=== PATIENT | male | born 1950 | race Caucasian/White ===

== ENCOUNTER 2017-02-26 12:02 | Inpatient (IN) | payer BC ==
[~2017-02-26] VITALS: Ht 177.8 cm; Wt 208.6 kg
[2017-02-26 12:54] LABS: EOSINOPHIL (%) 0 % (0-5); IMMATURE GRANULOCYTE (%) 0.2 % (0.0-0.7); INSTRUMENT ABS NEUTROPHIL CT 3.6 K/uL; LYMPHOCYTE COUNT 0.6 K/uL (1.0-2.8); MCH 30.3 PG (29.0-34.0); MCHC 31.7 G/DL (30.0-36.0); MCV 95.6 FL (86-99); MEAN PLAT.VOLUME 11.4 uM^3 (9.0-12.4); MONOCYTE (%) 10.6 % (3-12); MONOCYTE COUNT 0.5 K/uL (0-0.8); NEUTROPHIL (%) 75.7 % (45-76); NEUTROPHIL COUNT 3.6 K/uL (1.8-6.4); PLATELET COUNT 173 K/uL (156-360); RBC DIS.WIDTH-CV 14.7 % (11.8-14.6); RBC DIS.WIDTH-SD 52.1 % (39-53); RED BLOOD COUNT 4.29 M/uL (4.00-5.50); WHITE BLOOD COUNT 4.7 K/uL (4.1-10.2)
[2017-02-26 13:04] LABS: PROTHROMBIN TIME 10.6 (9.2-11.2); PTT 29.4 (25-32)
[2017-02-26 13:05] LABS: CHLORIDE 106 mEq/L (99-109); POTASSIUM 4.5 mEq/L (3.7-5.4); SODIUM 141 mEq/L (136-147)
[2017-02-26 13:06] LABS: MAGNESIUM 1.8 mg/dL (1.3-2.7)
[2017-02-26 13:07] LABS: GLUCOSE 114 mg/dL (70-99)
[2017-02-26 13:08] LABS: ANION GAP 10 MEQ/L (2-14)
[2017-02-26 13:11] LABS: GFR ESTIMATE (CALCULATED) > 59 mL/min/
[2017-02-26 13:12] LABS: UREA NITROGEN (BUN) 14 mg/dL (9-23)
[2017-02-26 13:16] LABS: TROP-I INTERPRETATION NEGATIVE; TROPONIN-I 0.03 ng/mL (0.0-0.30)
[2017-02-26 14:00] LABS: INFLUENZA A VIRAL ANTIGEN NEGATIVE; INFLUENZA B VIRAL ANTIGEN NEGATIVE
[2017-02-26] MEDS ORDERED: LISINOPRIL10 MG PO (15:20)
[2017-02-26] MEDS ORDERED: LEVOTHYROXINE75 MCG PO (15:21)
[2017-02-26] MEDS ORDERED: PIOGLITAZONE HC45 MG PO (15:21)
[2017-02-26] MEDS ORDERED: ROSUVASTATIN CA20 MG PO (15:21)
[2017-02-26] MEDS ORDERED: METFORMIN HCL500 MG PO (15:22)
[2017-02-26] MEDS ORDERED: PAIN RELIEF EX500 MG PO (15:24)
[2017-02-26 17:20] VITALS: BP 192/93
[2017-02-26 18:57] VITALS: BP 192/93
[2017-02-26 20:40] LABS: TROP-I INTERPRETATION NEGATIVE; TROPONIN-I 0.01 ng/mL (0.0-0.30)
[2017-02-26 23:57] VITALS: BP 135/71
[2017-02-27 00:59] LABS: TROP-I INTERPRETATION NEGATIVE; TROPONIN-I 0.01 ng/mL (0.0-0.30)
[2017-02-27 04:01] VITALS: BP 135/67
[2017-02-27 07:07] LABS: INTER. NORMALIZED RATIO 1.1; PROTHROMBIN TIME 10.7 (9.2-11.2); PTT 27.5 (25-32)
[2017-02-27 07:43] VITALS: BP 127/75
[2017-02-27 11:23] VITALS: BP 123/68
[2017-02-27 15:39] VITALS: BP 136/88
[2017-02-27 19:56] VITALS: BP 140/64
[2017-02-27 21:29] LABS: POINT-OF-CARE METER ID UU14174225
[2017-02-28 04:00] VITALS: BP 147/84
[2017-02-28 08:04] LABS: POINT-OF-CARE METER ID UU14188625
[2017-02-28 08:05] VITALS: BP 140/84
[2017-02-28 11:11] VITALS: BP 135/88
[2017-02-28 12:04] LABS: POINT-OF-CARE METER ID UU14188625
[2017-02-28 16:08] VITALS: BP 131/74
[2017-02-28 19:59] VITALS: BP 125/73
[2017-03-01 00:29] VITALS: BP 139/83
[2017-03-01 08:15] VITALS: BP 140/77
[2017-03-01 11:27] VITALS: BP 140/78
[2017-03-01 16:31] VITALS: BP 131/86
[2017-03-01 20:26] VITALS: BP 143/65
[2017-03-01 21:21] LABS: POINT-OF-CARE METER ID UU14174225
[2017-03-02] VITALS: BP 137/70
[2017-03-02 04:01] VITALS: BP 134/71
[2017-03-02 07:55] VITALS: BP 127/72
[2017-03-02 11:16] VITALS: BP 163/82
[2017-03-02] MEDS ORDERED: SPIRIVA RESPIMAT4 GM IH (12:02)
[2017-03-02] MEDS ORDERED: ELIQUIS5 MG PO (12:02)
[2017-03-02] MEDS ORDERED: LEVOFLOXACIN750 MG PO (12:02)
[2017-03-02] MEDS ORDERED: CARDIZEM CD,CA240 MG PO (12:03)
[2017-03-02] MEDS ORDERED: ADVAIR HFA120 INHALA IH (12:07)
[2017-03-02] MEDS ORDERED: PREDNISONE10 MG PO (12:10)
== END 2017-03-02 13:44 | disposition home health service (06) | DRG 191 ==
LOC: EME 12:02 → 5SOUTH 14:46 → EDOF 14:46 → 5SOUTH 17:20
PROVIDERS: Emergency Medicine; Hospitalist; Internal Medicine
DX: J44.0 Chronic obstructive pulmonary disease with (acute) lower respiratory infection (principal); J20.9 Acute bronchitis, unspecified; J44.1 Chronic obstructive pulmonary disease with (acute) exacerbation; I11.0 Hypertensive heart disease with heart failure; I50.9 Heart failure, unspecified; I48.91 Unspecified atrial fibrillation; G47.33 Obstructive sleep apnea (adult) (pediatric); I27.2 Other secondary pulmonary hypertension; E66.01 Morbid (severe) obesity due to excess calories; Z68.44 Body mass index [BMI] 60.0-69.9, adult; E11.9 Type 2 diabetes mellitus without complications; I87.2 Venous insufficiency (chronic) (peripheral); L30.9 Dermatitis, unspecified; E78.5 Hyperlipidemia, unspecified; E03.9 Hypothyroidism, unspecified; Z87.891 Personal history of nicotine dependence
CPT/HCPCS: 71010; 80048; 82948; 83735; 83880; 84443; 84484; 85025; 85610; 85730; 87502; 93005; 93306; 94640; 94640 76; 94760; 94799; 99202; 99281; 99285; J1100; J1815; J1940; J2920; J2930; J7030; J7512; J7644

== ENCOUNTER 2018-01-31 18:54 | Inpatient (IN) | payer OTHER, BC ==
[~2018-01-31] VITALS: Ht 172.7 cm; Wt 261.0 kg
[~2018-01-31 18:54] MED LIST: ADVAIR HFA120 INHALA IH; CARDIZEM CD,CA240 MG PO; ELIQUIS5 MG PO; LEVOFLOXACIN750 MG PO; LEVOTHYROXINE75 MCG PO; LISINOPRIL10 MG PO; METFORMIN HCL500 MG PO; PAIN RELIEF EX500 MG PO; PIOGLITAZONE HC45 MG PO; PREDNISONE10 MG PO; ROSUVASTATIN CA20 MG PO; SPIRIVA RESPIMAT4 GM IH
[2018-01-31 20:09] LABS: BASOPHIL (%) 0.2 % (0-1); EOSINOPHIL (%) 0 % (0-5); HEMATOCRIT 36.3 % (38.0-50.0); HEMOGLOBIN 11.4 G/DL (12.5-16.6); IMMATURE GRANULOCYTE (%) 1.2 % (0.0-0.7); LYMPHOCYTE (%) 4.2 % (15-42); LYMPHOCYTE COUNT 0.5 K/uL (1.0-2.8); MCH 29.5 PG (29.0-34.0); MCHC 31.4 G/DL (30.0-36.0); MCV 93.8 FL (86-99); MONOCYTE (%) 6.9 % (3-12); MONOCYTE COUNT 0.9 K/uL (0-0.8); NEUTROPHIL (%) 87.5 % (45-76); NEUTROPHIL COUNT 10.8 K/uL (1.8-6.4); NRBC (%) 0.4 /100 WBC (0-0); PLATELET COUNT 232 K/uL (156-360); RBC DIS.WIDTH-CV 17.2 % (11.8-14.6); RBC DIS.WIDTH-SD 59.1 % (39-53); RED BLOOD COUNT 3.87 M/uL (4.00-5.50); WHITE BLOOD COUNT 12.3 K/uL (4.1-10.2)
[2018-01-31 20:16] LABS: CHLORIDE 100 mEq/L (99-109); INTER. NORMALIZED RATIO 2.4; SODIUM 132 mEq/L (136-147)
[2018-01-31 20:18] LABS: GLUCOSE 114 mg/dL (70-99); PTT 37.7 SEC (25-37)
[2018-01-31 20:22] LABS: CREATININE 3.3 mg/dL (0.6-1.3); GFR ESTIMATE (CALCULATED) 20 mL/min/ (58.99-99999); UREA NITROGEN (BUN) 65 mg/dL (9-23)
[2018-01-31 20:30] LABS: TROP-I INTERPRETATION POSITIVE
[2018-01-31 20:34] LABS: TROPONIN-I 1.63 ng/mL (0.0-0.30)
[2018-01-31 20:44] LABS: CREATINE KINASE 4477 IU/L (1-294); POTASSIUM 6.9 mEq/L (3.7-5.4)
[2018-01-31 22:40] LABS: APPEARANCE CLOUDY ((CLEAR)); BILIRUBIN NEGATIVE; BLOOD LARGE; COLOR YELLOW ((YELLOW)); GLUCOSE (STRIP) NEGATIVE; KETONES NEGATIVE; LEUKOCYTES NEGATIVE; NITRITE NEGATIVE; PROTEIN (STRIP) 100; SPECIFIC GRAVITY 1.014 (1.000-1.030)
[2018-01-31 22:53] LABS: WHITE BLOOD CELLS 0-5 /HPF (0-5)
[2018-01-31 22:54] LABS: AMORPHOUS URATES CRYSTALS 4+; BACTERIA 1+ /HPF; EPITHELIAL CELLS 2+ /HPF; MUCUS NONE SEEN /LPF; UCUL ADDED? NO
[2018-01-31] MEDS ORDERED: LEVOTHYROXINE125 MCG PO (23:53)
[2018-01-31] MEDS ORDERED: DILTIAZEM 24HR240 MG PO (23:53)
[2018-01-31] MEDS ORDERED: TRAMADOL HCL50 MG PO (23:55)
[2018-02-01] MEDS ORDERED: FLEXERIL10 MG PO (00:21)
[2018-02-01] MEDS ORDERED: LASIX20 MG PO (00:23)
[2018-02-01 03:38] LABS: TROP-I INTERPRETATION POSITIVE
[2018-02-01 03:39] LABS: TROPONIN-I 1.25 ng/mL (0.0-0.30)
[2018-02-01 05:00] VITALS: BP 118/76
[2018-02-01 08:08] VITALS: BP 114/53
[2018-02-01 09:53] LABS: HEMATOCRIT 33.1 % (38.0-50.0); HEMOGLOBIN 10.4 G/DL (12.5-16.6); MCH 29.8 PG (29.0-34.0); MCHC 31.4 G/DL (30.0-36.0); MCV 94.8 FL (86-99); NRBC (%) 0.3 /100 WBC (0-0); PLATELET COUNT 183 K/uL (156-360); RBC DIS.WIDTH-CV 17.3 % (11.8-14.6); RBC DIS.WIDTH-SD 59.6 % (39-53); RED BLOOD COUNT 3.49 M/uL (4.00-5.50); WHITE BLOOD COUNT 11.7 K/uL (4.1-10.2)
[2018-02-01 10:14] LABS: TROP-I INTERPRETATION POSITIVE; TROPONIN-I 1.02 ng/mL (0.0-0.30)
[2018-02-01 12:00] VITALS: BP 122/57
[2018-02-01 12:04] LABS: CHLORIDE 103 MEQ/L (99-109); GFR ESTIMATE (CALCULATED) 22 mL/min/ (58.99-99999); GLUCOSE 100 mg/dL (70-99); SODIUM 136 MEQ/L (136-147); UREA NITROGEN (BUN) 65 mg/dL (9-23)
[2018-02-01 12:05] LABS: CREATINE KINASE 2522 IU/L (1-294); POTASSIUM 6.5 MEQ/L (3.7-5.4)
[2018-02-01 15:00] LABS: CHLORIDE 103 MEQ/L (99-109); GFR ESTIMATE (CALCULATED) 22 mL/min/ (58.99-99999); GLUCOSE 109 mg/dL (70-99); SODIUM 138 MEQ/L (136-147); UREA NITROGEN (BUN) 63 mg/dL (9-23)
[2018-02-01 15:09] LABS: POTASSIUM 6.2 MEQ/L (3.7-5.4)
[2018-02-01 19:58] VITALS: BP 100/50
[2018-02-01 21:28] LABS: CHLORIDE 104 MEQ/L (99-109); SODIUM 135 MEQ/L (136-147)
[2018-02-01 22:01] LABS: GFR ESTIMATE (CALCULATED) 22 mL/min/ (58.99-99999); GLUCOSE 111 mg/dL (70-99); POTASSIUM 6.3 MEQ/L (3.7-5.4); UREA NITROGEN (BUN) 60 mg/dL (9-23)
[2018-02-01 23:08] VITALS: BP 105/50
[2018-02-02 02:43] VITALS: BP 105/45
[2018-02-02 05:58] LABS: BASOPHIL (%) 0.3 % (0-1); EOSINOPHIL (%) 1.5 % (0-5); EOSINOPHIL COUNT 0.1 K/uL (0-0.3); HEMATOCRIT 30.7 % (38.0-50.0); HEMOGLOBIN 9.2 G/DL (12.5-16.6); IMMATURE GRANULOCYTE (%) 0.7 % (0.0-0.7); LYMPHOCYTE (%) 8.6 % (15-42); LYMPHOCYTE COUNT 0.8 K/uL (1.0-2.8); MCH 28.5 PG (29.0-34.0); MONOCYTE (%) 11.5 % (3-12); NEUTROPHIL (%) 77.4 % (45-76); NEUTROPHIL COUNT 6.9 K/uL (1.8-6.4); NRBC (%) 0.3 /100 WBC (0-0); PLATELET COUNT 196 K/uL (156-360); RBC DIS.WIDTH-CV 17.1 % (11.8-14.6); RBC DIS.WIDTH-SD 59.6 % (39-53); RED BLOOD COUNT 3.23 M/uL (4.00-5.50); WHITE BLOOD COUNT 8.9 K/uL (4.1-10.2)
[2018-02-02 07:02] LABS: CHLORIDE 104 MEQ/L (99-109); CREATININE 3.3 MG/DL (0.6-1.3); GFR ESTIMATE (CALCULATED) 20 mL/min/ (58.99-99999); GLUCOSE 101 mg/dL (70-99); SODIUM 135 MEQ/L (136-147); UREA NITROGEN (BUN) 63 mg/dL (9-23)
[2018-02-02 07:05] LABS: CREATINE KINASE 1128 IU/L (1-294); POTASSIUM 6.1 MEQ/L (3.7-5.4)
[2018-02-02 08:48] VITALS: BP 127/86
[2018-02-02 09:50] LABS: THYROTROPIN (TSH) 3.8 MIU/L (0.4-5.5)
[2018-02-02 12:42] LABS: CHLORIDE 106 MEQ/L (99-109); CREATININE 2.9 MG/DL (0.6-1.3); GFR ESTIMATE (CALCULATED) 23 mL/min/ (58.99-99999); GLUCOSE 134 mg/dL (70-99); POTASSIUM 5.7 MEQ/L (3.7-5.4); SODIUM 138 MEQ/L (136-147); UREA NITROGEN (BUN) 59 mg/dL (9-23)
[2018-02-02 13:29] VITALS: BP 126/74
[2018-02-02 14:21] LABS: C DIFF TOXIN NEGATIVE (NEGATIVE)
[2018-02-02 16:12] VITALS: BP 132/74
[2018-02-02 20:10] VITALS: BP 110/50
[2018-02-02 22:51] VITALS: BP 95/44
[2018-02-03 02:24] VITALS: BP 108/52
[2018-02-03 05:39] LABS: HEMATOCRIT 31.5 % (38.0-50.0); HEMOGLOBIN 9.7 G/DL (12.5-16.6); MCH 29.2 PG (29.0-34.0); MCHC 30.8 G/DL (30.0-36.0); MCV 94.9 FL (86-99); PLATELET COUNT 202 K/uL (156-360); RBC DIS.WIDTH-CV 17.4 % (11.8-14.6); RBC DIS.WIDTH-SD 60.3 % (39-53); RED BLOOD COUNT 3.32 M/uL (4.00-5.50); WHITE BLOOD COUNT 12.3 K/uL (4.1-10.2)
[2018-02-03 06:01] LABS: CHLORIDE 104 MEQ/L (99-109); CREATINE KINASE 510 IU/L (1-294); CREATININE 2.9 MG/DL (0.6-1.3); GFR ESTIMATE (CALCULATED) 23 mL/min/ (58.99-99999); GLUCOSE 153 mg/dL (70-99); MAGNESIUM 1.4 mg/dl (1.3-2.7); POTASSIUM 5.9 MEQ/L (3.7-5.4); SODIUM 139 MEQ/L (136-147); UREA NITROGEN (BUN) 56 mg/dL (9-23)
[2018-02-03 09:22] VITALS: BP 146/89
[2018-02-03 11:34] VITALS: BP 144/71
[2018-02-03 19:47] VITALS: BP 109/58
[2018-02-03 23:28] VITALS: BP 119/55
[2018-02-04 06:08] LABS: HEMATOCRIT 32.5 % (38.0-50.0); HEMOGLOBIN 9.9 G/DL (12.5-16.6); MCH 28.8 PG (29.0-34.0); MCHC 30.5 G/DL (30.0-36.0); MCV 94.5 FL (86-99); NRBC (%) 0.1 /100 WBC (0-0); PLATELET COUNT 214 K/uL (156-360); RBC DIS.WIDTH-CV 17.2 % (11.8-14.6); RBC DIS.WIDTH-SD 59.3 % (39-53); RED BLOOD COUNT 3.44 M/uL (4.00-5.50); WHITE BLOOD COUNT 17.2 K/uL (4.1-10.2)
[2018-02-04 06:28] LABS: CHLORIDE 101 MEQ/L (99-109); CREATININE 2.6 MG/DL (0.6-1.3); GFR ESTIMATE (CALCULATED) 26 mL/min/ (58.99-99999); GLUCOSE 183 mg/dL (70-99); MAGNESIUM 1.4 mg/dl (1.3-2.7); POTASSIUM 5.5 MEQ/L (3.7-5.4); SODIUM 136 MEQ/L (136-147); UREA NITROGEN (BUN) 57 mg/dL (9-23)
[2018-02-04 07:12] VITALS: BP 111/56
[2018-02-04 16:00] VITALS: BP 114/61
[2018-02-04 18:55] VITALS: BP 114/61
[2018-02-05 00:09] VITALS: BP 103/52
[2018-02-05 06:06] LABS: BASOPHIL (%) 0.1 % (0-1); EOSINOPHIL (%) 0 % (0-5); HEMATOCRIT 31.1 % (38.0-50.0); HEMOGLOBIN 9.6 G/DL (12.5-16.6); IMMATURE GRANULOCYTE (%) 1.3 % (0.0-0.7); LYMPHOCYTE (%) 2.2 % (15-42); LYMPHOCYTE COUNT 0.3 K/uL (1.0-2.8); MCH 28.4 PG (29.0-34.0); MCHC 30.9 G/DL (30.0-36.0); MONOCYTE (%) 5.1 % (3-12); MONOCYTE COUNT 0.8 K/uL (0-0.8); NEUTROPHIL (%) 91.3 % (45-76); NEUTROPHIL COUNT 13.5 K/uL (1.8-6.4); NRBC (%) 0.1 /100 WBC (0-0); PLATELET COUNT 225 K/uL (156-360); RBC DIS.WIDTH-CV 17.3 % (11.8-14.6); RBC DIS.WIDTH-SD 58.6 % (39-53); RED BLOOD COUNT 3.38 M/uL (4.00-5.50); WHITE BLOOD COUNT 14.8 K/uL (4.1-10.2)
[2018-02-05 06:26] LABS: CHLORIDE 103 MEQ/L (99-109); GFR ESTIMATE (CALCULATED) 34 mL/min/ (58.99-99999); GLUCOSE 208 mg/dL (70-99); POTASSIUM 5.8 MEQ/L (3.7-5.4); SODIUM 137 MEQ/L (136-147); UREA NITROGEN (BUN) 53 mg/dL (9-23)
[2018-02-05 06:30] LABS: CREATININE 2.1 MG/DL (0.6-1.3)
[2018-02-05 07:46] VITALS: BP 97/53
[2018-02-05 10:34] LABS: HEMOGLOBIN A1c (GLYCOHEMOGLOB) 6.3 % (Below 5.7)
[2018-02-05 11:37] VITALS: BP 119/58
[2018-02-05 15:48] VITALS: BP 112/57
[2018-02-05 17:15] LABS: CHLORIDE 103 mEq/L (99-109); SODIUM 136 mEq/L (136-147)
[2018-02-05 17:17] LABS: GLUCOSE 189 mg/dL (70-99)
[2018-02-05 17:21] LABS: GFR ESTIMATE (CALCULATED) 35 mL/min/ (58.99-99999)
[2018-02-05 17:22] LABS: UREA NITROGEN (BUN) 58 mg/dL (9-23)
[2018-02-05 19:29] VITALS: BP 115/55
[2018-02-05 23:46] VITALS: BP 121/55
[2018-02-06 04:00] VITALS: BP 112/59
[2018-02-06 06:07] LABS: HEMATOCRIT 32.5 % (38.0-50.0); MCH 29.1 PG (29.0-34.0); MCHC 30.8 G/DL (30.0-36.0); MCV 94.5 FL (86-99); NRBC (%) 0.2 /100 WBC (0-0); PLATELET COUNT 251 K/uL (156-360); RBC DIS.WIDTH-CV 17.5 % (11.8-14.6); RBC DIS.WIDTH-SD 60.4 % (39-53); RED BLOOD COUNT 3.44 M/uL (4.00-5.50); WHITE BLOOD COUNT 13.2 K/uL (4.1-10.2)
[2018-02-06 06:42] LABS: CHLORIDE 102 MEQ/L (99-109); GFR ESTIMATE (CALCULATED) 35 mL/min/ (58.99-99999); GLUCOSE 176 mg/dL (70-99); SODIUM 138 MEQ/L (136-147); UREA NITROGEN (BUN) 52 mg/dL (9-23)
[2018-02-06 06:49] LABS: POTASSIUM 6.2 MEQ/L (3.7-5.4)
[2018-02-06 07:03] VITALS: BP 101/59
[2018-02-06 11:10] VITALS: BP 110/56
[2018-02-06 15:05] VITALS: BP 121/63
[2018-02-06 18:34] LABS: CHLORIDE 102 MEQ/L (99-109); CREATININE 1.8 MG/DL (0.6-1.3); GFR ESTIMATE (CALCULATED) 40 mL/min/ (58.99-99999); GLUCOSE 193 mg/dL (70-99); POTASSIUM 5.6 MEQ/L (3.7-5.4); SODIUM 135 MEQ/L (136-147); UREA NITROGEN (BUN) 52 mg/dL (9-23)
[2018-02-06 20:14] VITALS: BP 111/56
[2018-02-07] VITALS (7 sets, daily range): BP systolic 109–130; BP diastolic 57–66
[2018-02-07 07:01] LABS: CHLORIDE 100 MEQ/L (99-109); CREATININE 1.7 MG/DL (0.6-1.3); GFR ESTIMATE (CALCULATED) 43 mL/min/ (58.99-99999); GLUCOSE 155 mg/dL (70-99); POTASSIUM 5.2 MEQ/L (3.7-5.4); SODIUM 137 MEQ/L (136-147); UREA NITROGEN (BUN) 49 mg/dL (9-23)
[2018-02-08 03:30] VITALS: BP 128/63
[2018-02-08 06:52] LABS: HEMATOCRIT 36.6 % (38.0-50.0); HEMOGLOBIN 10.9 G/DL (12.5-16.6); MCH 28.1 PG (29.0-34.0); MCHC 29.8 G/DL (30.0-36.0); MCV 94.3 FL (86-99); PLATELET COUNT 305 K/uL (156-360); RBC DIS.WIDTH-CV 17.3 % (11.8-14.6); RED BLOOD COUNT 3.88 M/uL (4.00-5.50); WHITE BLOOD COUNT 12.3 K/uL (4.1-10.2)
[2018-02-08 07:12] VITALS: BP 128/70
[2018-02-08 07:21] LABS: CHLORIDE 101 MEQ/L (99-109); CREATININE 1.4 MG/DL (0.6-1.3); GFR ESTIMATE (CALCULATED) 54 mL/min/ (58.99-99999); GLUCOSE 156 mg/dL (70-99); POTASSIUM 5.4 MEQ/L (3.7-5.4); SODIUM 137 MEQ/L (136-147); UREA NITROGEN (BUN) 44 mg/dL (9-23)
[2018-02-08 07:34] LABS: ALKALINE PHOSPHATASE 56 IU/L (3-129); ALT (GPT) 81 IU/L (3-49); AST (GOT) 37 IU/L (2-34); CREATINE KINASE 68 IU/L (1-294); DIRECT BILIRUBIN 0.1 mg/dL (0.0-0.3); TOTAL BILIRUBIN 0.5 MG/DL (0.0-1.0); TOTAL PROTEIN 5.8 G/DL (6.4-8.3)
[2018-02-08] MEDS ORDERED: AMOXICILLIN500 MG PO (11:06)
[2018-02-08 11:07] VITALS: BP 116/58
[2018-02-08 15:22] VITALS: BP 127/61
[2018-02-08 19:28] VITALS: BP 118/59
[2018-02-08 23:22] VITALS: BP 117/57
[2018-02-09 03:57] VITALS: BP 115/58
[2018-02-09 06:46] LABS: HEMATOCRIT 33.9 % (38.0-50.0); HEMOGLOBIN 10.2 G/DL (12.5-16.6); MCH 28.2 PG (29.0-34.0); MCHC 30.1 G/DL (30.0-36.0); MCV 93.6 FL (86-99); PLATELET COUNT 297 K/uL (156-360); RBC DIS.WIDTH-CV 17.2 % (11.8-14.6); RBC DIS.WIDTH-SD 59.4 % (39-53); RED BLOOD COUNT 3.62 M/uL (4.00-5.50); WHITE BLOOD COUNT 11.9 K/uL (4.1-10.2)
[2018-02-09 07:19] LABS: ABS NEUTROPHIL COUNT 10.2; ANISOCYTOSIS 1+; ATYPICAL LYMPHOCYTE 0.9 %; EOSINOPHIL ABS CT 0.1; EOSINOPHILS 0.8 % (0-5.0); LYMPHOCYTES 3.5 % (15.0-45.0); METAMYELOCYTES 0.9 %; MONOCYTES 6.1 % (0-9.0); MYELOCYTES 1.7 %; PLAT.SUFFICIENCY ADEQUATE; SEG.NEUTROPHILS 86.1 % (46.0-76.0); SMUDGE CELLS 0.9
[2018-02-09 07:34] LABS: CHLORIDE 102 MEQ/L (99-109); CREATININE 1.4 MG/DL (0.6-1.3); GFR ESTIMATE (CALCULATED) 54 mL/min/ (58.99-99999); GLUCOSE 138 mg/dL (70-99); POTASSIUM 5.2 MEQ/L (3.7-5.4); SODIUM 139 MEQ/L (136-147); UREA NITROGEN (BUN) 41 mg/dL (9-23)
[2018-02-09 07:46] VITALS: BP 110/58
[2018-02-09 11:47] VITALS: BP 140/61
[2018-02-09] MEDS ORDERED: LASIX20 MG PO (13:01)
[2018-02-09] MEDS ORDERED: FLEXERIL10 MG PO (13:03)
== END 2018-02-09 15:22 | DRG 557 ==
LOC: EME 18:54 → 4EAST 02-01 01:46 → EDOF 02-01 01:46 → ENRESERV 02-01 01:48 → 4EAST 02-01 04:49 → ENRESERV 02-03 17:25 → 5SOUTH 02-03 18:35
PROVIDERS: Emergency Medicine; Hospitalist; Internal Medicine; Internal Medicine Nephrology; Student in an Organized Health Care Education/Training Program
PROC: 5A09357 Assistance with Respiratory Ventilation, Less than 24 Consecutive Hours, Continuous Positive Airway Pressure (ICD-10-PCS; principal; 2018-01-31)
DX: M62.82 Rhabdomyolysis (principal); N17.0 Acute kidney failure with tubular necrosis; J96.01 Acute respiratory failure with hypoxia; J44.1 Chronic obstructive pulmonary disease with (acute) exacerbation; M17.12 Unilateral primary osteoarthritis, left knee; E66.01 Morbid (severe) obesity due to excess calories; E78.5 Hyperlipidemia, unspecified; B95.1 Streptococcus, group B, as the cause of diseases classified elsewhere; E87.5 Hyperkalemia; Z91.81 History of falling; Z68.45 Body mass index [BMI] 70 or greater, adult; I48.91 Unspecified atrial fibrillation; E78.00 Pure hypercholesterolemia, unspecified; E11.9 Type 2 diabetes mellitus without complications; G47.33 Obstructive sleep apnea (adult) (pediatric); Z90.49 Acquired absence of other specified parts of digestive tract; L03.116 Cellulitis of left lower limb; R74.8 Abnormal levels of other serum enzymes; M16.12 Unilateral primary osteoarthritis, left hip; I10 Essential (primary) hypertension; I83.12 Varicose veins of left lower extremity with inflammation; I83.11 Varicose veins of right lower extremity with inflammation; I51.7 Cardiomegaly
CPT/HCPCS: 71045; 73060; 73502; 73552; 73610; 76770; 80048; 80048 91; 80076; 81003; 82550; 82550 91; 82948; 83036; 83605; 83735; 84132; 84132 91; 84443; 84484; 85025; 85027; 85610; 85730; 87040; 87077; 87186; 87493; 87801; 93005; 94640; 94640 76; 94644; 94660; 94760; 94799; 97530 GO; 97530 GP; 99202; 99281; 99285; C1753; J0290; J0610; J0696; J1815; J1940; J2540; J2930; J3475; J7030; J7040; J7050; J7512

== ENCOUNTER 2018-03-02 09:56 | Inpatient (IN) | payer OTHER, BC ==
[~2018-03-02] VITALS: Ht 175.3 cm; Wt 227.0 kg
[~2018-03-02 09:56] MED LIST changes: +AMOXICILLIN500 MG PO; +DILTIAZEM 24HR240 MG PO; +FLEXERIL10 MG PO; +LASIX20 MG PO; +LEVOTHYROXINE125 MCG PO; +TRAMADOL HCL50 MG PO
[2018-03-02 10:55] LABS: BASOPHIL (%) 0.5 % (0-1); EOSINOPHIL (%) 2.5 % (0-5); EOSINOPHIL COUNT 0.1 K/uL (0-0.3); HEMATOCRIT 29.9 % (38.0-50.0); IMMATURE GRANULOCYTE (%) 0.9 % (0.0-0.7); LYMPHOCYTE (%) 17.5 % (15-42); LYMPHOCYTE COUNT 0.8 K/uL (1.0-2.8); MCH 29.9 PG (29.0-34.0); MCHC 30.1 G/DL (30.0-36.0); MONOCYTE (%) 11.1 % (3-12); MONOCYTE COUNT 0.5 K/uL (0-0.8); NEUTROPHIL (%) 67.5 % (45-76); NRBC (%) 0.7 /100 WBC (0-0); PLATELET COUNT 221 K/uL (156-360); RBC DIS.WIDTH-CV 19.4 % (11.8-14.6); RBC DIS.WIDTH-SD 66.8 % (39-53); RED BLOOD COUNT 3.01 M/uL (4.00-5.50); WHITE BLOOD COUNT 4.4 K/uL (4.1-10.2)
[2018-03-02 10:58] LABS: INTER. NORMALIZED RATIO 1.6
[2018-03-02 11:01] LABS: PTT 31.3 SEC (25-37)
[2018-03-02 11:09] LABS: ALBUMIN 2.9 g/dL (3.2-4.8); CHLORIDE 90 mEq/L (99-109); SODIUM 139 mEq/L (136-147)
[2018-03-02 11:11] LABS: GLUCOSE 113 mg/dL (70-99)
[2018-03-02 11:12] LABS: TOTAL PROTEIN 5.9 g/dL (6.4-8.3)
[2018-03-02 11:13] LABS: TOTAL BILIRUBIN 0.5 mg/dL (0.0-1.0)
[2018-03-02 11:15] LABS: ALKALINE PHOSPHATASE 98 IU/L (3-129); CREATININE 0.9 mg/dL (0.6-1.3); GFR ESTIMATE (CALCULATED) > 59 mL/min/ (58.99-99999)
[2018-03-02 11:16] LABS: UREA NITROGEN (BUN) 24 mg/dL (9-23)
[2018-03-02 11:17] LABS: AST (GOT) 15 IU/L (2-34)
[2018-03-02 11:18] LABS: ALT (GPT) 10 IU/L (3-49); MCV 99.3 FL (86-99)
[2018-03-02 11:19] LABS: TROP-I INTERPRETATION NEGATIVE; TROPONIN-I 0.02 ng/mL (0.0-0.30)
[2018-03-02] MEDS ORDERED: FUROSEMIDE80 MG PO (12:26)
[2018-03-02] MEDS ORDERED: LEVAQUIN500 MG PO (12:27)
[2018-03-02] MEDS ORDERED: METOPROLOL SUCC25 MG PO (12:29)
[2018-03-02] MEDS ORDERED: METOLAZONE5 MG PO (12:29)
[2018-03-02] MEDS ORDERED: FLORASTOR250 MG PO (12:31)
[2018-03-02] MEDS ORDERED: GLUCOPHAGE500 MG PO (12:31)
[2018-03-02] MEDS ORDERED: DUONEB 2.5-0.5 M3 ML AEROSOL (12:32)
[2018-03-02] MEDS ORDERED: TYLENOL REGULA325 MG PO (12:34)
[2018-03-02] MEDS ORDERED: COLACE100 MG PO (12:36)
[2018-03-02 17:21] VITALS: BP 104/54
[2018-03-02 20:26] VITALS: BP 97/50
[2018-03-03 00:12] VITALS: BP 116/56
[2018-03-03 05:46] LABS: HEMATOCRIT 30.9 % (38.0-50.0); HEMOGLOBIN 9.2 G/DL (12.5-16.6); MCH 29.5 PG (29.0-34.0); MCHC 29.8 G/DL (30.0-36.0); PLATELET COUNT 257 K/uL (156-360); RBC DIS.WIDTH-CV 19.5 % (11.8-14.6); RBC DIS.WIDTH-SD 67.9 % (39-53); RED BLOOD COUNT 3.12 M/uL (4.00-5.50)
[2018-03-03 06:34] LABS: CHLORIDE 87 MEQ/L (99-109); GFR ESTIMATE (CALCULATED) > 59 mL/min/ (58.99-99999); GLUCOSE 121 mg/dL (70-99); POTASSIUM 3.7 MEQ/L (3.7-5.4); SODIUM 141 MEQ/L (136-147); UREA NITROGEN (BUN) 25 mg/dL (9-23)
[2018-03-03 06:45] LABS: CARBON DIOXIDE (BICARBONATE) > 40.0 MEQ/L (20-31)
[2018-03-03 07:03] VITALS: BP 122/56
[2018-03-03 11:05] VITALS: BP 109/55
[2018-03-03 15:30] VITALS: BP 103/56
[2018-03-03 23:45] VITALS: BP 122/63
[2018-03-04 03:09] VITALS: BP 103/64
[2018-03-04 06:00] LABS: HEMATOCRIT 30.7 % (38.0-50.0); HEMOGLOBIN 9.1 G/DL (12.5-16.6); MCHC 29.6 G/DL (30.0-36.0); MCV 97.8 FL (86-99); PLATELET COUNT 246 K/uL (156-360); RBC DIS.WIDTH-CV 19.4 % (11.8-14.6); RBC DIS.WIDTH-SD 67.8 % (39-53); RED BLOOD COUNT 3.14 M/uL (4.00-5.50); WHITE BLOOD COUNT 4.7 K/uL (4.1-10.2)
[2018-03-04 06:27] LABS: CHLORIDE 86 MEQ/L (99-109); GFR ESTIMATE (CALCULATED) > 59 mL/min/ (58.99-99999); GLUCOSE 103 mg/dL (70-99); POTASSIUM 3.5 MEQ/L (3.7-5.4); SODIUM 139 MEQ/L (136-147); UREA NITROGEN (BUN) 26 mg/dL (9-23)
[2018-03-04 06:39] LABS: CARBON DIOXIDE (BICARBONATE) > 40.0 MEQ/L (20-31)
[2018-03-04 08:00] VITALS: BP 110/59
[2018-03-04 11:00] VITALS: BP 114/63
[2018-03-04 15:00] VITALS: BP 115/64
[2018-03-04 19:45] VITALS: BP 114/57
[2018-03-04 23:19] VITALS: BP 114/57
[2018-03-05 06:07] LABS: MCH 29.3 PG (29.0-34.0); MCV 97.7 FL (86-99); PLATELET COUNT 254 K/uL (156-360); RBC DIS.WIDTH-CV 19.5 % (11.8-14.6); RBC DIS.WIDTH-SD 67.7 % (39-53); RED BLOOD COUNT 3.07 M/uL (4.00-5.50); WHITE BLOOD COUNT 4.3 K/uL (4.1-10.2)
[2018-03-05 06:40] LABS: CARBON DIOXIDE (BICARBONATE) > 40.0 MEQ/L (20-31); CHLORIDE 84 MEQ/L (99-109); GFR ESTIMATE (CALCULATED) > 59 mL/min/ (58.99-99999); GLUCOSE 100 mg/dL (70-99); POTASSIUM 3.4 MEQ/L (3.7-5.4); SODIUM 139 MEQ/L (136-147); UREA NITROGEN (BUN) 27 mg/dL (9-23)
[2018-03-05 08:01] VITALS: BP 111/60
[2018-03-05 09:03] LABS: MAGNESIUM 1.5 mg/dl (1.3-2.7)
[2018-03-05 13:25] VITALS: BP 113/63
[2018-03-05 17:32] VITALS: BP 124/58
[2018-03-05 20:00] VITALS: BP 90/54
[2018-03-06 00:13] VITALS: BP 107/55
[2018-03-06 04:18] VITALS: BP 147/71
[2018-03-06 05:54] LABS: HEMATOCRIT 29.6 % (38.0-50.0); HEMOGLOBIN 9.1 G/DL (12.5-16.6); MCH 29.9 PG (29.0-34.0); MCHC 30.7 G/DL (30.0-36.0); MCV 97.4 FL (86-99); PLATELET COUNT 262 K/uL (156-360); RBC DIS.WIDTH-CV 19.6 % (11.8-14.6); RED BLOOD COUNT 3.04 M/uL (4.00-5.50); WHITE BLOOD COUNT 4.8 K/uL (4.1-10.2)
[2018-03-06 06:28] LABS: CARBON DIOXIDE (BICARBONATE) > 40.0 MEQ/L (20-31); CHLORIDE 87 MEQ/L (99-109); GFR ESTIMATE (CALCULATED) > 59 mL/min/ (58.99-99999); GLUCOSE 102 mg/dL (70-99); MAGNESIUM 1.5 mg/dl (1.3-2.7); POTASSIUM 3.5 MEQ/L (3.7-5.4); SODIUM 141 MEQ/L (136-147); UREA NITROGEN (BUN) 29 mg/dL (9-23)
[2018-03-06 06:48] VITALS: BP 113/65
[2018-03-06 10:50] VITALS: BP 115/60
[2018-03-06 16:07] VITALS: BP 99/51
[2018-03-06 19:42] VITALS: BP 110/58
[2018-03-07 00:04] VITALS: BP 92/47
[2018-03-07 04:00] VITALS: BP 111/56
[2018-03-07 05:36] LABS: HEMATOCRIT 29.3 % (38.0-50.0); HEMOGLOBIN 8.9 G/DL (12.5-16.6); MCH 29.4 PG (29.0-34.0); MCHC 30.4 G/DL (30.0-36.0); MCV 96.7 FL (86-99); PLATELET COUNT 269 K/uL (156-360); RBC DIS.WIDTH-CV 19.6 % (11.8-14.6); RBC DIS.WIDTH-SD 67.4 % (39-53); RED BLOOD COUNT 3.03 M/uL (4.00-5.50); WHITE BLOOD COUNT 5.3 K/uL (4.1-10.2)
[2018-03-07 06:10] LABS: CHLORIDE 90 MEQ/L (99-109); GFR ESTIMATE (CALCULATED) > 59 mL/min/ (58.99-99999); GLUCOSE 109 mg/dL (70-99); MAGNESIUM 1.6 mg/dl (1.3-2.7); POTASSIUM 3.5 MEQ/L (3.7-5.4); SODIUM 141 MEQ/L (136-147); UREA NITROGEN (BUN) 29 mg/dL (9-23)
[2018-03-07 06:20] LABS: CARBON DIOXIDE (BICARBONATE) > 40.0 MEQ/L (20-31)
[2018-03-07 06:50] VITALS: BP 96/51
[2018-03-07 11:10] VITALS: BP 103/63
[2018-03-07 16:00] VITALS: BP 113/63
[2018-03-07 19:58] VITALS: BP 112/58
[2018-03-08 00:41] VITALS: BP 113/58
[2018-03-08 04:18] VITALS: BP 118/63
[2018-03-08 07:46] LABS: HEMATOCRIT 30.2 % (38.0-50.0); HEMOGLOBIN 9.2 G/DL (12.5-16.6); MCH 29.7 PG (29.0-34.0); MCHC 30.5 G/DL (30.0-36.0); MCV 97.4 FL (86-99); PLATELET COUNT 299 K/uL (156-360); RBC DIS.WIDTH-CV 19.7 % (11.8-14.6); WHITE BLOOD COUNT 4.8 K/uL (4.1-10.2)
[2018-03-08 07:57] LABS: CHLORIDE 91 MEQ/L (99-109); CREATININE 1.1 MG/DL (0.6-1.3); GFR ESTIMATE (CALCULATED) > 59 mL/min/ (58.99-99999); GLUCOSE 98 mg/dL (70-99); MAGNESIUM 1.8 mg/dl (1.3-2.7); POTASSIUM 3.8 MEQ/L (3.7-5.4); SODIUM 140 MEQ/L (136-147); UREA NITROGEN (BUN) 29 mg/dL (9-23)
[2018-03-08 07:59] LABS: CARBON DIOXIDE (BICARBONATE) > 40.0 MEQ/L (20-31)
[2018-03-08 08:17] VITALS: BP 118/62
[2018-03-08 12:03] VITALS: BP 123/74
[2018-03-08 17:11] VITALS: BP 111/54
[2018-03-08 19:35] VITALS: BP 111/59
[2018-03-09] VITALS: BP 134/63
[2018-03-09 04:24] VITALS: BP 139/72
[2018-03-09 06:20] LABS: HEMATOCRIT 29.2 % (38.0-50.0); HEMOGLOBIN 8.8 G/DL (12.5-16.6); MCH 29.1 PG (29.0-34.0); MCHC 30.1 G/DL (30.0-36.0); MCV 96.7 FL (86-99); PLATELET COUNT 324 K/uL (156-360); RBC DIS.WIDTH-CV 19.2 % (11.8-14.6); RBC DIS.WIDTH-SD 67.1 % (39-53); RED BLOOD COUNT 3.02 M/uL (4.00-5.50); WHITE BLOOD COUNT 5.9 K/uL (4.1-10.2)
[2018-03-09 06:55] LABS: CHLORIDE 93 MEQ/L (99-109); GFR ESTIMATE (CALCULATED) > 59 mL/min/ (58.99-99999); GLUCOSE 96 mg/dL (70-99); POTASSIUM 3.9 MEQ/L (3.7-5.4); SODIUM 141 MEQ/L (136-147); UREA NITROGEN (BUN) 30 mg/dL (9-23)
[2018-03-09 08:10] VITALS: BP 105/61
[2018-03-09 11:42] VITALS: BP 116/64
[2018-03-09 16:02] VITALS: BP 110/56
[2018-03-09 20:01] VITALS: BP 111/55
[2018-03-10 04:15] VITALS: BP 137/71
[2018-03-10 07:21] VITALS: BP 117/60
[2018-03-10] MEDS ORDERED: K-DUR20 MEQ PO (11:38)
[2018-03-10] MEDS ORDERED: FUROSEMIDE40 MG PO (11:38)
[2018-03-10] MEDS ORDERED: MAG-OXIDE400 MG PO (11:38)
[2018-03-10 11:55] VITALS: BP 125/58
== END 2018-03-10 14:21 | DRG 292 ==
LOC: EME 09:56 → 5EAST 13:10 → EDOF 13:10 → ENRESERV 13:22 → EDOF 13:22 → ENRESERV 13:44 → 5EAST 16:47
PROVIDERS: Emergency Medicine; Internal Medicine; Physician Assistant
PROC: 5A09357 Assistance with Respiratory Ventilation, Less than 24 Consecutive Hours, Continuous Positive Airway Pressure (ICD-10-PCS; principal; 2018-03-02)
DX: I50.33 Acute on chronic diastolic (congestive) heart failure (principal); N17.9 Acute kidney failure, unspecified; R78.81 Bacteremia; M62.82 Rhabdomyolysis; Z68.45 Body mass index [BMI] 70 or greater, adult; E66.01 Morbid (severe) obesity due to excess calories; I48.2 Chronic atrial fibrillation; E87.5 Hyperkalemia; J44.0 Chronic obstructive pulmonary disease with (acute) lower respiratory infection; M25.511 Pain in right shoulder; G47.33 Obstructive sleep apnea (adult) (pediatric); E78.5 Hyperlipidemia, unspecified; E03.9 Hypothyroidism, unspecified; E11.9 Type 2 diabetes mellitus without complications; I11.0 Hypertensive heart disease with heart failure; R09.02 Hypoxemia; B95.1 Streptococcus, group B, as the cause of diseases classified elsewhere; Z87.891 Personal history of nicotine dependence; Z79.01 Long term (current) use of anticoagulants; Z82.49 Family history of ischemic heart disease and other diseases of the circulatory system
CPT/HCPCS: 71045; 73030; 80048; 80053; 82948; 83735; 83880; 84484; 85025; 85027; 85610; 85730; 93005; 93306; 94640; 94640 76; 94660; 94760; 94799; 97530 GO; 99202; 99281; 99285; J1815; J1940

== ENCOUNTER 2018-04-10 21:33 | Inpatient (IN) | payer OTHER, BC ==
[~2018-04-10] VITALS: Ht 172.7 cm; Wt 216.0 kg
[~2018-04-10 21:33] MED LIST changes: +COLACE100 MG PO; +DUONEB 2.5-0.5 M3 ML AEROSOL; +FLORASTOR250 MG PO; +FUROSEMIDE40 MG PO; +FUROSEMIDE80 MG PO; +GLUCOPHAGE500 MG PO; +K-DUR20 MEQ PO; +LEVAQUIN500 MG PO; +MAG-OXIDE400 MG PO; +METOLAZONE5 MG PO; +METOPROLOL SUCC25 MG PO; +TYLENOL EXTRA500 MG PO
[2018-04-10 22:22] LABS: BASOPHIL (%) 0.3 % (0-1); EOSINOPHIL (%) 2.5 % (0-5); EOSINOPHIL COUNT 0.2 K/uL (0-0.3); HEMATOCRIT 31.2 % (38.0-50.0); HEMOGLOBIN 10.1 G/DL (12.5-16.6); IMMATURE GRANULOCYTE (%) 0.3 % (0.0-0.7); LYMPHOCYTE (%) 16.3 % (15-42); LYMPHOCYTE COUNT 1.2 K/uL (1.0-2.8); MCHC 32.4 G/DL (30.0-36.0); MONOCYTE (%) 9.1 % (3-12); MONOCYTE COUNT 0.7 K/uL (0-0.8); NEUTROPHIL (%) 71.5 % (45-76); NEUTROPHIL COUNT 5.1 K/uL (1.8-6.4); RBC DIS.WIDTH-CV 16.9 % (11.8-14.6); RBC DIS.WIDTH-SD 57.1 % (39-53); RED BLOOD COUNT 3.37 M/uL (4.00-5.50); WHITE BLOOD COUNT 7.1 K/uL (4.1-10.2)
[2018-04-10 22:26] LABS: MCV 92.6 FL (86-99); PLATELET COUNT 322 K/uL (156-360)
[2018-04-10 22:30] LABS: INTER. NORMALIZED RATIO 1.5
[2018-04-10 22:31] LABS: ALBUMIN 3.4 g/dL (3.2-4.8); CHLORIDE 99 mEq/L (99-109); POTASSIUM 4.1 mEq/L (3.7-5.4); SODIUM 139 mEq/L (136-147)
[2018-04-10 22:32] LABS: MAGNESIUM 1.6 mg/dL (1.3-2.7)
[2018-04-10 22:34] LABS: GLUCOSE 138 mg/dL (70-99); TOTAL PROTEIN 6.2 g/dL (6.4-8.3)
[2018-04-10 22:36] LABS: TOTAL BILIRUBIN 0.5 mg/dL (0.0-1.0)
[2018-04-10 22:37] LABS: ALKALINE PHOSPHATASE 70 IU/L (3-129)
[2018-04-10 22:38] LABS: CREATININE 1.5 mg/dL (0.6-1.3); GFR ESTIMATE (CALCULATED) 49 mL/min/ (58.99-99999)
[2018-04-10 22:39] LABS: AST (GOT) 16 IU/L (2-34); UREA NITROGEN (BUN) 39 mg/dL (9-23)
[2018-04-10 22:40] LABS: ALT (GPT) 9 IU/L (3-49)
[2018-04-10 22:41] LABS: CREATINE KINASE 39 IU/L (1-294); TOTAL CK 39 IU/L (1-294)
[2018-04-10 22:43] LABS: TROP-I INTERPRETATION NEGATIVE; TROPONIN-I 0.01 ng/mL (0.0-0.30)
[2018-04-10 22:46] LABS: CK-MB 0.6 ng/mL (0.0-4.9); CKMB RELATIVE INDEX 1.5 (0.0-3.9)
[2018-04-10] MEDS ORDERED: ROSUVASTATIN CA20 MG PO (22:49)
[2018-04-10] MEDS ORDERED: METFORMIN HCL500 MG PO (22:49)
[2018-04-10] MEDS ORDERED: LISINOPRIL10 MG PO (22:50)
[2018-04-10] MEDS ORDERED: DILTIAZEM 24HR240 MG PO (22:51)
[2018-04-10 23:28] LABS: THYROTROPIN (TSH) 5.9 MIU/L (0.4-5.5)
[2018-04-11 00:52] LABS: APPEARANCE CLEAR ((CLEAR)); BILIRUBIN NEGATIVE; BLOOD NEGATIVE; COLOR YELLOW ((YELLOW)); GLUCOSE (STRIP) NEGATIVE; KETONES NEGATIVE; LEUKOCYTES NEGATIVE; NITRITE NEGATIVE; PROTEIN (STRIP) NEGATIVE; SPECIFIC GRAVITY 1.018 (1.000-1.030); UCUL ADDED? NO
[2018-04-11 01:03] LABS: BASE EXCESS 4.4 mEq/L (-3 to +3); BICARBONATE 28.4 mEq/L (22-26); CARBOXY HGB 2.4 % (0-5); COMMENTS - BLOOD GASES C+; METHEMOGLOBIN 0.9 % (0-1.5); MODE RA; PCO2 39 mm Hg (35-45); PO2 70 mm Hg (80-100); SITE LB; TOTAL RESP RATE 22 resp/min; pH 7.47 (7.35-7.45)
[2018-04-11 05:18] VITALS: BP 106/65
[2018-04-11 05:53] LABS: HEMATOCRIT 31.6 % (38.0-50.0); MCH 29.3 PG (29.0-34.0); MCHC 31.6 G/DL (30.0-36.0); MCV 92.7 FL (86-99); PLATELET COUNT 319 K/uL (156-360); RBC DIS.WIDTH-CV 16.7 % (11.8-14.6); RBC DIS.WIDTH-SD 56.9 % (39-53); RED BLOOD COUNT 3.41 M/uL (4.00-5.50); WHITE BLOOD COUNT 7.3 K/uL (4.1-10.2)
[2018-04-11 06:24] LABS: CHLORIDE 100 MEQ/L (99-109); CREATININE 1.3 MG/DL (0.6-1.3); GFR ESTIMATE (CALCULATED) 58 mL/min/ (58.99-99999); GLUCOSE 108 mg/dL (70-99); SODIUM 138 MEQ/L (136-147); UREA NITROGEN (BUN) 36 mg/dL (9-23)
[2018-04-11 11:29] VITALS: BP 112/62
[2018-04-11 15:28] VITALS: BP 120/63
[2018-04-11 19:59] VITALS: BP 105/58
[2018-04-12 00:32] VITALS: BP 121/58
[2018-04-12 04:00] VITALS: BP 122/62
[2018-04-12 06:06] LABS: HEMATOCRIT 32.5 % (38.0-50.0); MCH 29.2 PG (29.0-34.0); MCHC 30.8 G/DL (30.0-36.0); PLATELET COUNT 303 K/uL (156-360); RBC DIS.WIDTH-CV 16.6 % (11.8-14.6); RBC DIS.WIDTH-SD 58.2 % (39-53); RED BLOOD COUNT 3.42 M/uL (4.00-5.50); WHITE BLOOD COUNT 5.8 K/uL (4.1-10.2)
[2018-04-12 06:23] LABS: CHLORIDE 103 MEQ/L (99-109); CREATININE 1.1 MG/DL (0.6-1.3); GFR ESTIMATE (CALCULATED) > 59 mL/min/ (58.99-99999); GLUCOSE 108 mg/dL (70-99); POTASSIUM 4.7 MEQ/L (3.7-5.4); SODIUM 139 MEQ/L (136-147); UREA NITROGEN (BUN) 28 mg/dL (9-23)
[2018-04-12 08:04] VITALS: BP 126/66
[2018-04-12 10:55] VITALS: BP 128/62
[2018-04-12 15:13] VITALS: BP 112/63
[2018-04-12 19:37] VITALS: BP 131/61
[2018-04-13] VITALS (7 sets, daily range): BP systolic 102–142; BP diastolic 51–74
[2018-04-14 03:48] VITALS: BP 110/64
[2018-04-14 07:01] LABS: BASOPHIL (%) 0.7 % (0-1); EOSINOPHIL (%) 4.7 % (0-5); EOSINOPHIL COUNT 0.3 K/uL (0-0.3); HEMATOCRIT 31.8 % (38.0-50.0); HEMOGLOBIN 9.8 G/DL (12.5-16.6); IMMATURE GRANULOCYTE (%) 0.2 % (0.0-0.7); LYMPHOCYTE (%) 27.3 % (15-42); LYMPHOCYTE COUNT 1.5 K/uL (1.0-2.8); MCH 29.2 PG (29.0-34.0); MCHC 30.8 G/DL (30.0-36.0); MCV 94.6 FL (86-99); MONOCYTE (%) 9.4 % (3-12); MONOCYTE COUNT 0.5 K/uL (0-0.8); NEUTROPHIL (%) 57.7 % (45-76); NEUTROPHIL COUNT 3.2 K/uL (1.8-6.4); PLATELET COUNT 272 K/uL (156-360); RBC DIS.WIDTH-CV 16.5 % (11.8-14.6); RBC DIS.WIDTH-SD 57.5 % (39-53); RED BLOOD COUNT 3.36 M/uL (4.00-5.50); WHITE BLOOD COUNT 5.5 K/uL (4.1-10.2)
[2018-04-14 07:24] LABS: CHLORIDE 105 MEQ/L (99-109); GFR ESTIMATE (CALCULATED) > 59 mL/min/ (58.99-99999); GLUCOSE 122 mg/dL (70-99); POTASSIUM 4.6 MEQ/L (3.7-5.4); SODIUM 138 MEQ/L (136-147); UREA NITROGEN (BUN) 27 mg/dL (9-23)
[2018-04-14 07:33] VITALS: BP 124/74
[2018-04-14 11:15] VITALS: BP 116/68
[2018-04-14 12:04] LABS: IMM.RETIC FRACTION 14.8 % (3-19); RETIC HGB EQUIVALENT 33.9 (28-36); RETICULOCYTE COUNT 1.4 % (0.5-1.8)
[2018-04-14 12:31] LABS: IRON 60 MCG/DL (35-150); TRANSFERRIN (TIBC) 244.9 mg/dL (215-380); TRANSFERRIN SATUR. 24 % (20-55)
[2018-04-14 12:39] LABS: FERRITIN 52 NG/ML (22-322)
[2018-04-14 14:12] LABS: FOLIC ACID (FOLATE) 7.4 NG/ML (5.0-22.0)
[2018-04-14] MEDS ORDERED: NOVOLOG 10100 UNITS/ SC (14:31)
[2018-04-14] MEDS ORDERED: FOLIC ACID1 MG PO (14:31)
[2018-04-14] MEDS ORDERED: CYANOCOBALAM1000 MCG PO (14:31)
[2018-04-14] MEDS ORDERED: POLYETHYLENE GL17 GM PO (14:32)
[2018-04-14] MEDS ORDERED: DOCUSATE SODIU100 MG PO (14:32)
[2018-04-14] MEDS ORDERED: CARDIZEM CD120 M1 PO (14:32)
[2018-04-14] MEDS ORDERED: Salonpas 4% Patch TD (14:33)
[2018-04-14 15:52] VITALS: BP 126/70
== END 2018-04-14 16:41 | DRG 683 ==
LOC: EME → EDBD 21:33 → EDOF 04-11 03:02 → 5SOUTH 04-11 03:02 → ENRESERV 04-11 03:04 → 5SOUTH 04-11 04:36
PROVIDERS: Emergency Medicine; Family Medicine; Hospitalist; Internal Medicine
DX: N17.9 Acute kidney failure, unspecified (principal); I11.0 Hypertensive heart disease with heart failure; I48.91 Unspecified atrial fibrillation; I50.32 Chronic diastolic (congestive) heart failure; E66.01 Morbid (severe) obesity due to excess calories; Z68.45 Body mass index [BMI] 70 or greater, adult; J44.9 Chronic obstructive pulmonary disease, unspecified; D64.9 Anemia, unspecified; E11.9 Type 2 diabetes mellitus without complications; E78.5 Hyperlipidemia, unspecified; Z79.01 Long term (current) use of anticoagulants; G47.33 Obstructive sleep apnea (adult) (pediatric); Z87.891 Personal history of nicotine dependence; Z82.49 Family history of ischemic heart disease and other diseases of the circulatory system; Z79.84 Long term (current) use of oral hypoglycemic drugs; E86.0 Dehydration; M25.562 Pain in left knee; M25.561 Pain in right knee; M54.9 Dorsalgia, unspecified; E03.9 Hypothyroidism, unspecified; F32.9 Major depressive disorder, single episode, unspecified; F41.9 Anxiety disorder, unspecified
CPT/HCPCS: 36600; 80048; 80053; 81003; 82550; 82553; 82607; 82728; 82746; 82803; 82948; 83540; 83735; 83880; 84439; 84443; 84466; 84484; 85025; 85027; 85046; 85610; 85730; 93005; 94640; 94640 76; 94799; 97530 GO; 99202; 99281; 99285; J1815; J7030